=== PATIENT | female | born 1960 | race Caucasian/White ===

== ENCOUNTER 2016-10-20 13:34 | Emergency (ER) | payer BC ==
[2016-10-20 14:00] VITALS: RESP 16; TEMP 97.9
--- NOTE | 2016-10-20 18:31 | PDOC ---
Back Pain / Injury HPI - General Chief Complaint: Neck / Back Complaint Stated Complaint: back pain Date Seen by Provider: 10/20/16 Time Seen by Provider: 13:48 Source: Patient Exam Limitations: POSITIVE: No limitations Nurse's Notes Reviewed & Considered: Yes - History of Present Illness Initial Comments: The patient is a 56-year-old female who presents to the emergency room with a chief complaint of a 3 day history of discomfort right paralumbar area. She states she was lifting some heavy boxes just prior to the onset of her symptoms and states that she "lifted wrong". No falls. No sensory or motor symptoms. No GI or symptoms. She states that she does have some radiation of the discomfort into her right upper leg. Body Location Affected: REPORTS: Back (Right paralumbar area) Timing: REPORTS: Abrupt Duration: >24 hours (3 days [employer]) Severity: Moderate Quality: REPORTS: "Pain", Sharpness Context: REPORTS: Lifting, Turning Modifying Factors: improves with: Movement (Pain is exacerbated by flexion of the lower back and portion of the lower back.), Remaining Still (Pain relieved by lying flat on her back.) Associated Symptoms: REPORTS: Back pain Similar Symptoms Previously: No Recent Care Received: REPORTS: Denies Any Prior Injuries Related to Current Complaint?: No - Patient Home Medications Home Medications: Home Medications Cyclobenzaprine HCl [Flexeril] 10 mg PO TID #21 tab 10/20/16 Ibuprofen 600 mg PO Q6H PRN PRN 10/20/16 - Patient Allergies Allergies/Adverse Reactions: Allergies Allergy/AdvReac Type Severity Reaction Status Date / Time No Known Allergies Allergy Unverified 10/20/16 13:49 Past Medical History - heen HEENT History: Denies History Cardiovascular History: Hypertension Additional Cardiovasular History: WAS PREVIOUSLY ON MEDS FOR HIGH BLOOD PRESSURE BUT STOPPED IT HER B/P WAS NORMAL Respiratory History: Denies History Gastrointestinal History: Denies History Genitourinary History: Denies History Endocrine History: Denies History Musculoskeletal History: Denies History Neurological History: Denies History Blood Disorders: Denies History Psychiatric History: Denies History History of Sexually Transmitted Diseases: No Female Reproductive History: Hysterectomy Obstetrical History: Delivery Cancer History: Other (please comment) In Past Year Been Physically Harmed or Verbally Threatened: No History of MDRO: No History of Other Communicable Diseases: No Tobacco Use: Former Smoker Alcohol Use: Rarely Substance Use Type: None Previous Surgical History: Yes Type / Date of Surgery: TOTAL HYSTERECTOMY//D & C Significant Family History: No pertinent family hx Past Medical History Reviewed: Reviewed - No Changes ROS - Limitations ROS Limitations: No Limitations Constitution: REPORTS: Denies Symptoms Cardiovascular: REPORTS: Denies Cardiac Symptoms Respiratory: REPORTS: Denies Resp Symptoms Neurological: REPORTS: Denies Neuro Symptoms Gastrointestinal: REPORTS: Denies GI Symptoms Endocrine: REPORTS: Denies Symptoms Musculoskeletal: REPORTS: Muscle Aches (As above; see diagram), Other (Right paralumbar low back pain) Genitourinary: REPORTS: Denies Symptoms Eyes: REPORTS: Denies Symptoms ENT: REPORTS: Denies Symptoms Skin: REPORTS: Denies Skin Symptoms Lympathic: REPORTS: Denies Lympathic Symptoms Immunologic: POSITIVE: Denies Symptoms Psychiatric: POSITIVE: Denies Psych Symptoms Back Physical Assessment - General Appearance General Appearance: REPORTS: Alert, Cooperative, No Acute Distress, No Evidence of Trauma - HEENT HEENT: POSITIVE: Head Inspection Nml, Eyes Inspection Nml, Ears Inspection Nml, Nose Inspection Nml, Oral/Dental Inspect. Nml, Pharynx Inspect. Nml, PERRL, EOMI - Neck Neck: POSITIVE: Non Tender, Painless ROM, Trachea Midline, Nexus Criteria Negative - Respiratory / CVS Respiratory / CVS: POSITIVE: Chest Non Tender, No Ecchymosis, Breath Sounds Normal, No Respiratory Distress, Heart Sounds Normal, Regular Rate/Rhythm - Abdomen Abdomen: Soft: (All Quadrants), Normal Bowel Sounds: (All Quadrants), Denies Tenderness: (All Quadrants), No Splenomegaly: (All Quadrants), No Hepatomegaly: (All Quadrants), No Guarding: (All Quadrants), No Rebound: (All Quadrants), No Palpable Pulse: (All Quadrants), No Palpabale Mass: (All Quadrants), No Distention: (All Quadrants), No Rigidity: (All Quadrants) - Back Back: REPORTS: No CVA Tenderness, No Vertebral Tenderness, Muscle Spasm (Right paralumbar musculature), See Diagram. DENIES: Non Tender (Discomfort on direct palpation right lower paralumbar musculature), Painless ROM (Discomfort with full flexion and with torsion of torso), Vertebral Pt. Tenderness, CVA Tenderness (R), CVA Tenderness (L) - Skin Skin: REPORTS: Intact, Normal For Race, Warm, Dry, No Rash - Extremities Extremity Assessment: Non-Tender: (ALL), Normal ROM: (ALL), No Edema: (ALL), Normal Inspection: (ALL), No Swelling: (ALL) Musculoskeletal: REPORTS: Back Pain (As above; discomfort and some spasm right paralumbar musculature; see diagram) Peripheral Pulses: Radial (R): 2+, Radial (L): 2+, Dorsalis-pedis (R): 2+, Dorsalis-pedis (L): 2+ - Neurological / Psychological Neuro / Psych: POSITIVE: Oriented X3, rn hemodialysis charge Normal As Tested, Motor Normal, Sensation Normal, Mood Appropriate, Affect Appropriate, Reflexes Normal Images - Complete Complete: 1 - Discomfort on palpation and some muscular spasm Back Progress - Patient's Progress Pain Medication Addressed: POSITIVE: Yes (Recommended ibuprofen 4-600 mg every 8 hours and Flexeril 10 mg every 8 hours.) School/Work Release Addressed: POSITIVE: Not Applicable Re-Examine Time: 14:10 Status: POSITIVE: Unchanged - Consult Counseled: POSITIVE: Patient, Family, RE: DX, RE: Need for F/U Patient Care Time - Estimated PCT Patient Care Time (In Minutes): 20 Vital Signs - Recent Vital Signs Vital Signs: Vital Signs (Last 8 hours) Temp Pulse Resp BP Pulse Ox 10/20/16 13:47 97.9 F 106 H 16 141/90 94 - VS Reviewed Vital Signs Reviewed: Yes Discharge Clinical Impression: Lumbar strain Discharge Disposition: Discharged to Home Condition: Stable Prescriptions / Orders: Cyclobenzaprine HCl [Flexeril] 10 mg PO TID #21 tab Patient Instructions Given at Discharge: Low Back Strain (ED) Additional Instructions: I believe you strain the muscles of your lower back and now have some spasm in the right lower back musculature. Please rest for 24 hours. Position of maximum relaxation is lying on your back with a small pillow under your knees. Take ibuprofen, 2-4 every 8 hours. Of also prescribed for you Flexeril, which is a muscle relaxant. Take one every 8 hours. Return anytime if condition worsens or any new symptoms develop. Follow-up with your primary care provider. Follow Up With: NONE,NONE [Primary Care Provider] - (Instructions as above. Follow-up with your primary care provider. Return here as necessary.)
== END 2016-10-20 14:15 | disposition home or self-care (01) ==
LOC: ER 13:34
DX: S39.012A Strain of muscle, fascia and tendon of lower back, initial encounter (principal); X50.0XXA Overexertion from strenuous movement or load, initial encounter
CPT/HCPCS: 99282